=== PATIENT | female | born 1980 | race Caucasian/White ===

== ENCOUNTER 2018-08-25 13:14 | Emergency (ER) | payer SELFPAY ==
[~2018-08-25] VITALS: Ht 162.6 cm; Wt 92.0 kg
[2018-08-25 13:24] VITALS: Ht 162.6 cm; Wt 92.0 kg
[2018-08-25] MEDS ORDERED: KETOROLAC 30 MG INJ IM STA (13:55)
[2018-08-25] MEDS ORDERED: IBUP-1542 PO (14:49)
--- NOTE | 2018-08-25 15:01 | ERD ---
ER Documentation Chief Complaint Chief Complaint right abdominal pain and lower back pain x 4 days HPI This is a 38-year-old female with history of thalassemia who presents with sudden onset right mid back pain for the past 4 days after leaning forward. Patient describes the pain as a pinching type pain that migrates over to her r ight upper quadrant and midepigastric region. She states symptoms are positional. She denies any nausea or vomiting. Denies any urinary symptoms. Denies any fevers. Denies any loss of bowel or bladder control. Denies any other complaints. Denies any direct back trauma. ROS All systems reviewed and are negative except as per history of present illness. Medications Home Meds Active Scripts Ibuprofen* (Motrin*) 600 Mg Tab, 600 MG PO Q6H PRN for PAIN AND OR ELEVATED TEMP, #30 TAB Prov:PRISCILLA LAUREN PA-C 08/25/18 Allergies Allergies: Coded Allergies: No Known Drug Allergy (Verified Allergy, Mild, 12/08/08) PMhx/Soc Medical and Surgical Hx: pt denies Medical Hx, pt denies Surgical Hx Hx Alcohol Use: No Hx Substance Use: No Hx Tobacco Use: No Smoking Status: Never smoker FmHx Family History: No diabetes Physical Exam Vitals Vital Signs Date Temp Pulse Resp B/P (MAP) Pulse Ox O2 O2 Flow FiO2 Time Delivery Rate 08/25/18 99.3 118 18 177/111 98 13:24 (133) Physical Exam Const: No acute distress Head: Atraumatic Eyes: Normal Conjunctiva ENT: Normal External Ears, Nose and Mouth. Neck: Full range of motion. No meningismus. Resp: Clear to auscultation bilaterally Cardio: Regular rate and rhythm, no murmurs Abd: Soft, non tender, non distended. Normal bowel sounds. Negative McBurney's. Negative right upper quadrant tenderness, rebound, no guarding. Skin: No petechiae or rashes Back: + Right parathoracic tenderness to palpation, no midline tenderness. Negative straight leg raise. Distal pulses intact. Bilateral lower extremity motor and sensation intact. Ext: No cyanosis, or edema Neur: Awake and alert Psych: Normal Mood and Affect Result Diagram: 08/25/18 1407 08/25/18 1407 Results 24 hrs Laboratory Tests Test 08/25/18 14:07 08/25/18 14:08 White Blood Count 10.5 10^3/ul Red Blood Count 4.85 10^6/ul Hemoglobin 9.3 g/dl Hematocrit 31.7 % Mean Corpuscular Volume 65.4 fl Mean Corpuscular Hemoglobin 19.2 pg Mean Corpuscular Hemoglobin Concent 29.3 g/dl Red Cell Distribution Width 18.2 % Platelet Count 529 10^3/UL Mean Platelet Volume 9.0 fl Immature Granulocytes % 0.500 % Neutrophils % 66.7 % Lymphocytes % 23.6 % Monocytes % 6.4 % Eosinophils % 2.2 % Basophils % 0.6 % Nucleated Red Blood Cells % 0.0 /100WBC Immature Granulocytes # 0.050 10^3/ul Neutrophils # 7.0 10^3/ul Lymphocytes # 2.5 10^3/ul Monocytes # 0.7 10^3/ul Eosinophils # 0.2 10^3/ul Basophils # 0.1 10^3/ul Nucleated Red Blood Cells # 0.0 10^3/ul Urine Color YELLOW Urine Clarity SLIGHTLY CLOUDY Urine pH 7.0 Urine Specific [place] 1.026 Urine Ketones NEGATIVE mg/dL Urine Nitrite NEGATIVE mg/dL Urine Bilirubin NEGATIVE mg/dL Urine Urobilinogen 1+ mg/dL Urine Leukocyte Esterase NEGATIVE Lisa/ul Urine Microscopic RBC 0 /HPF Urine Microscopic WBC 1 /HPF Urine Squamous Epithelial Cells MODERATE /HPF Urine Bacteria FEW /HPF Urine Mucus FEW /HPF Urine Hemoglobin NEGATIVE mg/dL Urine Glucose NEGATIVE mg/dL Urine Total Protein NEGATIVE mg/dl Urine Test NEGATIVE Sodium Level 144 mmol/L Potassium Level 4.0 mmol/L Chloride Level 107 mmol/L Carbon Dioxide Level 24 mmol/L Anion Gap 13 Blood Urea Nitrogen 9 mg/dl Creatinine 0.56 mg/dl Est Glomerular Filtrat Rate mL/min > 60 mL/min Glucose Level 90 mg/dl Calcium Level 9.0 mg/dl Total Bilirubin 0.3 mg/dl Direct Bilirubin 0.00 mg/dl Indirect Bilirubin 0.3 mg/dl Aspartate Amino Transf (AST/SGOT) 24 IU/L Alanine Aminotransferase (ALT/SGPT) 26 IU/L Alkaline Phosphatase 65 IU/L Total Protein 8.5 g/dl Albumin 4.6 g/dl Globulin 3.90 g/dl Albumin/Globulin Ratio 1.17 Lipase 132 U/L POC Beta HCG, Qualitative NEGATIVE Current Medications Medications Dose Sig/Roney Start Time Status Last (Trade) Ordered Route PRN Stop Time Admin Dose Reason Admin Ketorolac 30 mg ONCE STAT 08/25/18 DC Tromethamine IM 13:55 08/25/18 (Toradol) 13:56 Procedures/MDM LABS & DIAGNOSTIC IMAGING: CBC: H/H of 9.3 and 31.7, consistent with alpha thalassemia. CMP: no e/o severe acidosis, alkalosis, renal failure, diabetic ketoacidosis, liver disease Urine preg: neg The patient's lipase is normal and indicative of no pancreatitis. PROCEDURE: US Abdomen (right upper quadrant). CLINICAL INDICATION: Right upper quadrant abdomen pain. TECHNIQUE: Multiple real-time longitudinal and transverse images of the right upper quadrant of the abdomen were acquired utilizing a curved array transducer. Images were reviewed on a high-resolution PACS workstation. COMPARISON: None FINDINGS: The liver is normal in size and diffusely increased in echogenicity. There is no focal hepatic lesion. Color Doppler and pulsed Doppler sonography demonstrate normal antegrade flow in the portal vein. The gallbladder is normal with no stones or wall thickening. The bile ducts are normal with the common bile duct measuring 2.6 mm in diameter. The visualized portions of the pancreas are unremarkable with obscuration of the tail of the pancreas. No free fluid is present. The right kidney measures 11.7 cm. There is normal echogenicity of the right kidney. There is no perinephric fluid collection. No hydronephrosis, mass, or calculus is seen. IMPRESSION: 1. Fatty metamorphosis of the liver. 2. Otherwise unremarkable right upper quadrant abdomen ultrasound. ED COURSE: The patient was given IM Toradol The medication was well tolerated and the patient had market improvement in symptoms. The patient remained stable throughout ED course. MEDICAL DECISION MAKIN-year-old female presents with atraumatic back pain after leaning forward. She also complained of right upper quadrant pain. Right upper quadrant ultrasound was obtained to rule out gallstones which was negative. Her hemoglobin is 9, remaining CBC is consistent with thalassemia. She is not symptomatic. Repeat vital signs are normal. She is hemodynamically stable. She takes iron for her anemia. In terms of her back pain, this is likely musculoskeletal in origin. The pain was improved after Toradol. I offered muscle relaxants as well but patient deferred. She was discharged home with PCP follow-up and strict return precautions. History and physical not consistent w/ cauda equina, cord compression, spinal tumor/mass or compression fracture. PRESCRIPTIONS: Ibuprofen SPECIALIST FOLLOW UP RECOMMENDED: None Patient has been advised to follow up with primary care in 1-2 days. Departure Diagnosis: Primary Impression: Back strain Encounter type: initial encounter Qualified Codes: S39.012A - Strain of muscle, fascia and tendon of lower back, initial encounter Condition: Stable Patient Instructions: Back Exercises, Lumbar, Thoracic Strain Referrals: [facility] Urgent Care 7 a.m.- 11 p.m. Every Day of the Week NO APPOINTMENT OR AUTHORIZATION NEEDED Additional Instructions: Call your primary care doctor TOMORROW for an appointment during the next 2-4 days and bring all the information and medications prescribed. If the symptoms get worse and your provider is unavailable, return to the Emergency Department immediately. PRISCILLA LAUREN PA-C Aug 25, 2018 15:01
[2018-08-25 15:05] VITALS: BP 138/97; PULSE 82; RESP 16
== END 2018-08-25 15:04 | disposition home or self-care (01) ==
LOC: FTE 13:14
DX: S39.012A Strain of muscle, fascia and tendon of lower back, initial encounter (principal); X58.XXXA Exposure to other specified factors, initial encounter; Y92.9 Unspecified place or not applicable
CPT/HCPCS: 36415; 76705; 80053; 81001; 81025; 83690; 84703; 85025; 96372; 99285; J1885; 81003